=== PATIENT | male | born 1990 | race Two or more races ===

== ENCOUNTER 2018-02-23 22:14 | Emergency (ER) | payer OTHER ==
[~2018-02-23] VITALS: Ht 157.5 cm; Wt 61.2 kg
--- NOTE | 2018-02-23 22:30 | NUR ---
Patient ambulated to ER with steady gait, c/o pain on right shoulder, reports was lifting some plates, felt a sudden pop on right shoulder, reports moderate pain on and off.
--- NOTE | 2018-02-23 22:41 | NUR ---
Dr. Byrd at bedside for MSE.
--- NOTE | 2018-02-23 22:58 | NUR ---
Xray at bedside.
[2018-02-23] MEDS ORDERED: IBUPROFEN 800 MG TABLET PO ONE (23:00)
[2018-02-23] MEDS ORDERED: IBUPROFEN 800 MG TABLET ONE (23:01)
--- NOTE | 2018-02-23 23:32 | NUR ---
Patient discharged to home in stable conditon. Written and verbal after care instructions given. Patient verbalizes understanding of instructions. Patient ambulated out of ER with steady gait, no acute signs of distress, VSS, all belongings taken.
[2018-02-23 23:34] VITALS: BP 132/76
== END 2018-02-23 23:34 | disposition home or self-care (01) ==
LOC: ER 22:15
DX: M75.41 Impingement syndrome of right shoulder (principal)
CPT/HCPCS: 73030; A4663